=== PATIENT | male | born 1950 | race Caucasian/White ===

== ENCOUNTER 2019-09-08 18:30 | Inpatient (IN) ==
[2019-09-08] MEDS ORDERED: Naloxone 0.4 MG/ML INJ IVP PRN (21:48)
[2019-09-08 22:35] LABS: Mean Platelet Volume 8.8 fL (9.4-12.4)
[2019-09-08 22:37] LABS: Basophils % 0.1 %; Eosinophils # 0.3 K/mcL (0.0-0.6); Eosinophils % 2.7 %; Immature Granulocytes % 0.9 % (0-4); Lymphocytes # 2.2 K/mcL (0.6-4.6); Mean Corpuscular HGB Conc 30.6 g/dL (31.6-35.5); Mean Corpuscular Hemoglobin 27.8 pg (28.0-33.3); Mean Corpuscular Volume 90.9 fL (83.0-100.0); Monocytes # 0.5 K/mcL (0.0-1.3); Monocytes % 5.1 %; Neutrophils # 7.4 K/mcL (1.6-8.9); Platelet Count 375 K/mcL (140-400); Red Blood Count 1.87 M/mcL (4.19-5.50); Red Cell Distribution Width 16.4 % (11.5-14.5); Segmented Neutrophils % 70.2 %; White Blood Count 10.5 K/mcL (4.3-11.1)
[2019-09-08 22:44] LABS: INR 1.2; Prothrombin Time 13.2 Seconds (9.4-12.1)
[2019-09-08 22:47] LABS: Activated Partial Thrombo Time 34.1 Seconds (26.0-36.0)
[2019-09-08 22:55] LABS: Alanine Aminotransferase 7 Units/L (7-52); Albumin 2.4 g/dL (3.5-5.7); Albumin/Globulin Ratio 0.7 (1.1-2.2); Alkaline Phosphatase 92 Units/L (34-104); Aspartate Amino Transferase 12 Units/L (13-39); BUN/Creatinine Ratio 10 (6-26); Bilirubin,Total 0.5 mg/dL (0.3-1.0); Blood Urea Nitrogen 10 mg/dL (8-23); Calcium 7.8 mg/dL (8.6-10.3); Carbon Dioxide 27 mEq/L (23-29); Chloride 104 mEq/L (98-107); Globulin 3.4 g/dL (2.4-3.5); Glucose 101 mg/dL (70-105); Hemoglobin 5.2 g/dL (12.9-16.9); Osmolality,Calculated 281 (280-300); Potassium 4.3 mEq/L (3.5-5.1); Sodium 136 mEq/L (136-145); Total Protein 5.8 g/dL (6.4-8.9); eGFR For African Americans > 60 (> 60); eGFR For Non-African Americans > 60 (> 60)
[2019-09-08 22:56] LABS: Troponin I < 0.03 ng/mL (< 0.04)
[2019-09-08 23:12] LABS: Hypochromasia Present (Not Present); Microcytosis Present (Not Present); Platelet Estimate Normal (Normal)
[2019-09-08] MEDS ORDERED: PrednisoLONE Acetate 1% Opth 5 ML BOTTLE LEFT EYE SCH (23:15)
[2019-09-08] MEDS ORDERED: 0.9 % Sodium Chloride 250 ML ONE (23:36)
[2019-09-09] MEDS: levETIRAcetam 250 MG TABLET PO SCH ×3 (00:24→20:46)
[2019-09-09] MEDS ORDERED: 0.9 % Sodium Chloride 250 ML ONE (03:01)
[2019-09-09 04:18] LABS: Bilirubin,Urine Negative (Negative); Blood,Urine Large (Negative); Clarity,Urine Cloudy (Clear); Color,Urine Yellow (Yellow); Glucose,Urine (UA) Normal (Normal); Ketones,Urine Negative (Negative); Leukocyte Esterase,Urine Small (Negative); Nitrite,Urine Negative (Negative); PH,Urine 7.5 pH Units (5.0-8.0); Protein,Urine 100 mg/dL (Neg-Trace); Specific Gravity,Urine 1.014 (1.010-1.025); Urobilinogen,Urine Normal (Normal)
[2019-09-09 05:25] LABS: RBC,Urine TNTC per hpf (0-3)
[2019-09-09] MEDS ORDERED: cefTRIAXone 2,000 MG in Water for inj. (sterile) 20 ML IVP SCH (06:00)
[2019-09-09 08:02] LABS: Basophils # 0.1 K/mcL (0.0-0.2); Basophils % 0.7 %; Eosinophils # 0.2 K/mcL (0.0-0.6); Eosinophils % 2.6 %; Hematocrit 23.2 % (37.5-50.1); Immature Granulocytes % 0.5 % (0-4); Lymphocytes # 1.7 K/mcL (0.6-4.6); Lymphocytes % 18.8 %; Mean Corpuscular HGB Conc 32.3 g/dL (31.6-35.5); Mean Corpuscular Volume 89.6 fL (83.0-100.0); Mean Platelet Volume 8.6 fL (9.4-12.4); Monocytes # 0.7 K/mcL (0.0-1.3); Monocytes % 7.7 %; Neutrophils # 6.4 K/mcL (1.6-8.9); Platelet Count 319 K/mcL (140-400); Red Blood Count 2.59 M/mcL (4.19-5.50); Red Cell Distribution Width 15.8 % (11.5-14.5); Segmented Neutrophils % 69.7 %; White Blood Count 9.1 K/mcL (4.3-11.1)
[2019-09-09 08:12] LABS: Hemoglobin 7.5 g/dL (12.9-16.9)
[2019-09-09 08:17] LABS: Alanine Aminotransferase 8 Units/L (7-52); Albumin 2.3 g/dL (3.5-5.7); Albumin/Globulin Ratio 0.7 (1.1-2.2); Alkaline Phosphatase 87 Units/L (34-104); Aspartate Amino Transferase 12 Units/L (13-39); BUN/Creatinine Ratio 8 (6-26); Bilirubin,Total 0.4 mg/dL (0.3-1.0); Blood Urea Nitrogen 8 mg/dL (8-23); Calcium 7.8 mg/dL (8.6-10.3); Carbon Dioxide 27 mEq/L (23-29); Chloride 103 mEq/L (98-107); Globulin 3.3 g/dL (2.4-3.5); Glucose 91 mg/dL (70-105); Osmolality,Calculated 280 (280-300); Potassium 4.3 mEq/L (3.5-5.1); Sodium 136 mEq/L (136-145); Total Protein 5.6 g/dL (6.4-8.9); eGFR For African Americans > 60 (> 60); eGFR For Non-African Americans > 60 (> 60)
[2019-09-09] MEDS ORDERED: BESIFLOXACIN HCL LEFT EYE SCH (09:00)
[2019-09-09] MEDS: Fluticasone Propionate Nasal 50 MCG/SPRAY BOTTLE NS SCH (09:45)
[2019-09-09] MEDS: *HR* HYDROcodone/Acet 5/325 mg TABLET PO PRN ×2 (11:09→20:51)
[2019-09-09 13:11] LABS: Hematocrit 23.2 % (37.5-50.1); Hemoglobin 7.6 g/dL (12.9-16.9)
[2019-09-09] MEDS ORDERED: Ipratropium/Albuterol Neb 3 ML IH PRN (15:11)
[2019-09-09] MEDS: Gabapentin 400 MG CAPSULE PO SCH ×2 (15:18→20:46)
[2019-09-09] MEDS: cefTRIAXone 2,000 MG in 0.9 % Sodium Chloride Mini Bag 100 ML IVPB SCH (17:52)
[2019-09-09 19:05] LABS: Hematocrit 23.5 % (37.5-50.1); Hemoglobin 7.7 g/dL (12.9-16.9)
[2019-09-09] MEDS: Mirtazapine 15 MG TABLET PO SCH (20:46)
[2019-09-09] MEDS: traZODone 50 MG TABLET PO SCH (20:46)
[2019-09-10 04:03] LABS: Basophils # 0.1 K/mcL (0.0-0.2); Basophils % 0.5 %; Eosinophils # 0.4 K/mcL (0.0-0.6); Eosinophils % 3.2 %; Hematocrit 22.7 % (37.5-50.1); Hemoglobin 7.3 g/dL (12.9-16.9); Immature Granulocytes % 0.7 % (0-4); Lymphocytes % 18.1 %; Mean Corpuscular HGB Conc 32.2 g/dL (31.6-35.5); Mean Corpuscular Hemoglobin 28.5 pg (28.0-33.3); Mean Corpuscular Volume 88.7 fL (83.0-100.0); Mean Platelet Volume 8.7 fL (9.4-12.4); Neutrophils # 7.6 K/mcL (1.6-8.9); Platelet Count 355 K/mcL (140-400); Red Blood Count 2.56 M/mcL (4.19-5.50); Red Cell Distribution Width 16.1 % (11.5-14.5); Segmented Neutrophils % 68.5 %; White Blood Count 11.1 K/mcL (4.3-11.1)
[2019-09-10 04:19] LABS: BUN/Creatinine Ratio 12 (6-26); Blood Urea Nitrogen 15 mg/dL (8-23); Carbon Dioxide 24 mEq/L (23-29); Chloride 104 mEq/L (98-107); Glucose 92 mg/dL (70-105); Osmolality,Calculated 278 (280-300); Potassium 4.1 mEq/L (3.5-5.1); Sodium 134 mEq/L (136-145); eGFR For African Americans > 60 (> 60); eGFR For Non-African Americans 59 (> 60)
[2019-09-10] MEDS ORDERED: Folic Acid 1 MG TABLET PO SCH (09:00)
[2019-09-10] MEDS ORDERED: Cyanocobalamin (B-12) 1,000 MCG TABLET PO SCH (09:00)
[2019-09-10] MEDS ORDERED: Cholecalciferol (D-3) 1,000 UNIT (25MCG) TABLET PO SCH (09:00)
[2019-09-10] MEDS: Gabapentin 400 MG CAPSULE PO SCH ×3 (09:36→21:36)
[2019-09-10] MEDS: levETIRAcetam 250 MG TABLET PO SCH ×2 (09:36→21:37)
[2019-09-10] MEDS: Fluticasone Propionate Nasal 50 MCG/SPRAY BOTTLE NS SCH (09:37)
[2019-09-10] MEDS: cefTRIAXone 2,000 MG in 0.9 % Sodium Chloride Mini Bag 100 ML IVPB SCH (09:37)
[2019-09-10] MEDS: Mirtazapine 15 MG TABLET PO SCH (21:37)
[2019-09-10] MEDS: traZODone 50 MG TABLET PO SCH (21:37)
[2019-09-11 05:02] LABS: Basophils % 0.4 %; Eosinophils # 0.3 K/mcL (0.0-0.6); Eosinophils % 3.8 %; Hematocrit 21.8 % (37.5-50.1); Hemoglobin 6.8 g/dL (12.9-16.9); Immature Granulocytes % 0.7 % (0-4); Lymphocytes # 1.9 K/mcL (0.6-4.6); Lymphocytes % 22.7 %; Mean Corpuscular HGB Conc 31.2 g/dL (31.6-35.5); Mean Corpuscular Hemoglobin 28.7 pg (28.0-33.3); Mean Platelet Volume 8.8 fL (9.4-12.4); Monocytes # 0.9 K/mcL (0.0-1.3); Neutrophils # 5.2 K/mcL (1.6-8.9); Platelet Count 355 K/mcL (140-400); Red Blood Count 2.37 M/mcL (4.19-5.50); Red Cell Distribution Width 16.5 % (11.5-14.5); Segmented Neutrophils % 61.4 %; White Blood Count 8.4 K/mcL (4.3-11.1)
[2019-09-11 05:21] LABS: Calcium 7.8 mg/dL (8.6-10.3); Magnesium 2.1 mg/dL (1.6-2.6); Potassium 4.3 mEq/L (3.5-5.1)
[2019-09-11] MEDS ORDERED: Ondansetron 4 MG/2 ML VIAL ONE (07:20)
[2019-09-11] MEDS ORDERED: Lidocaine -MPF 2% 2 ML VIAL ONE (07:20)
[2019-09-11] MEDS ORDERED: *HR* FentaNYL (PF) 100 MCG/2 ML VIAL ONE ×3 (07:20→09:52)
[2019-09-11] MEDS ORDERED: *HR* Propofol 200 MG/20 ML VIAL IVP ONE (07:20)
[2019-09-11] MEDS ORDERED: Dexamethasone 4 MG/ML VIAL ONE (07:20)
[2019-09-11] MEDS ORDERED: Morphine Sulfate 2 MG/ML SYRINGE IVP PRN (07:23)
[2019-09-11] MEDS ORDERED: *HR* HYDROcodone/Acet 5/325 mg TABLET PO PRN (07:23)
[2019-09-11] MEDS ORDERED: Isovue-300 50ML VIAL ONE (07:27)
[2019-09-11] MEDS ORDERED: *HR* Succinylcholine 200 MG/10 ML VIAL IVP ONE (07:31)
[2019-09-11] MEDS: cefTRIAXone 2,000 MG in 0.9 % Sodium Chloride Mini Bag 100 ML IVPB SCH (08:15)
[2019-09-11] MEDS ORDERED: Lidocaine -MPF 4% 5 ML AMPUL ONE (08:20)
[2019-09-11] MEDS ORDERED: *HR* PHENYLEPHRINE 1,000 MCG/10 ML SYRINGE IVP ONE ×2 (08:20→08:46)
[2019-09-11] MEDS ORDERED: EPHEDrine 50 MG/ML VIAL ONE (08:49)
[2019-09-11] MEDS ORDERED: Naloxone 0.4 MG/ML INJ IVP PRN (11:24)
[2019-09-11] MEDS ORDERED: Ipratropium/Albuterol Neb 3 ML IH PRN (11:24)
[2019-09-11] MEDS: *HR* HYDROcodone/Acet 5/325 mg TABLET PO PRN (11:42)
[2019-09-11 12:56] LABS: Hematocrit 33.3 % (37.5-50.1); Hemoglobin 10.8 g/dL (12.9-16.9)
[2019-09-11] MEDS: levETIRAcetam 250 MG TABLET PO SCH (19:30)
[2019-09-11] MEDS: traZODone 50 MG TABLET PO SCH (19:31)
[2019-09-11] MEDS: Mirtazapine 15 MG TABLET PO SCH (19:31)
[2019-09-11] MEDS: Gabapentin 400 MG CAPSULE PO SCH (19:31)
[2019-09-12 07:13] LABS: Basophils # 0.1 K/mcL (0.0-0.2); Basophils % 0.6 %; Eosinophils # 0.3 K/mcL (0.0-0.6); Eosinophils % 3.9 %; Hematocrit 25.7 % (37.5-50.1); Immature Granulocytes % 0.9 % (0-4); Lymphocytes % 24.7 %; Mean Corpuscular HGB Conc 31.9 g/dL (31.6-35.5); Mean Corpuscular Hemoglobin 29.2 pg (28.0-33.3); Mean Corpuscular Volume 91.5 fL (83.0-100.0); Mean Platelet Volume 8.6 fL (9.4-12.4); Monocytes # 0.8 K/mcL (0.0-1.3); Monocytes % 9.4 %; Neutrophils # 4.8 K/mcL (1.6-8.9); Platelet Count 320 K/mcL (140-400); Red Blood Count 2.81 M/mcL (4.19-5.50); Red Cell Distribution Width 16.3 % (11.5-14.5); Segmented Neutrophils % 60.5 %; White Blood Count 7.9 K/mcL (4.3-11.1)
[2019-09-12 07:21] LABS: BUN/Creatinine Ratio 13 (6-26); Blood Urea Nitrogen 14 mg/dL (8-23); Calcium 7.8 mg/dL (8.6-10.3); Carbon Dioxide 30 mEq/L (23-29); Chloride 105 mEq/L (98-107); Glucose 89 mg/dL (70-105); Magnesium 1.9 mg/dL (1.6-2.6); Osmolality,Calculated 286 (280-300); Sodium 138 mEq/L (136-145); eGFR For African Americans > 60 (> 60); eGFR For Non-African Americans > 60 (> 60)
[2019-09-12 07:27] LABS: Hemoglobin 8.2 g/dL (12.9-16.9)
[2019-09-12] MEDS: *HR* HYDROcodone/Acet 5/325 mg TABLET PO PRN (08:02)
[2019-09-12] MEDS: Cyanocobalamin (B-12) 1,000 MCG TABLET PO SCH (08:03)
[2019-09-12] MEDS: levETIRAcetam 250 MG TABLET PO SCH ×2 (08:03→20:38)
[2019-09-12] MEDS: Folic Acid 1 MG TABLET PO SCH (08:04)
[2019-09-12] MEDS: Cholecalciferol (D-3) 1,000 UNIT (25MCG) TABLET PO SCH (08:05)
[2019-09-12] MEDS: cefTRIAXone 2,000 MG in 0.9 % Sodium Chloride Mini Bag 100 ML IVPB SCH (08:05)
[2019-09-12] MEDS: Gabapentin 400 MG CAPSULE PO SCH ×2 (08:05→20:38)
[2019-09-12] MEDS: Fluticasone Propionate Nasal 50 MCG/SPRAY BOTTLE NS SCH (08:07)
[2019-09-12] MEDS ORDERED: Ondansetron 4 MG/2 ML VIAL IVP PRN (18:13)
[2019-09-12] MEDS: traZODone 50 MG TABLET PO SCH (20:37)
[2019-09-12] MEDS: Mirtazapine 15 MG TABLET PO SCH (20:38)
[2019-09-13 04:39] LABS: Basophils # 0.1 K/mcL (0.0-0.2); Basophils % 0.7 %; Eosinophils # 0.5 K/mcL (0.0-0.6); Eosinophils % 5.4 %; Hematocrit 27.9 % (37.5-50.1); Hemoglobin 8.8 g/dL (12.9-16.9); Immature Granulocytes % 0.9 % (0-4); Lymphocytes # 1.9 K/mcL (0.6-4.6); Lymphocytes % 21.4 %; Mean Corpuscular HGB Conc 31.5 g/dL (31.6-35.5); Mean Corpuscular Hemoglobin 29.1 pg (28.0-33.3); Mean Corpuscular Volume 92.4 fL (83.0-100.0); Mean Platelet Volume 8.7 fL (9.4-12.4); Monocytes # 0.8 K/mcL (0.0-1.3); Monocytes % 9.5 %; Neutrophils # 5.4 K/mcL (1.6-8.9); Platelet Count 344 K/mcL (140-400); Red Blood Count 3.02 M/mcL (4.19-5.50); Red Cell Distribution Width 16.3 % (11.5-14.5); Segmented Neutrophils % 62.1 %; White Blood Count 8.7 K/mcL (4.3-11.1)
[2019-09-13 04:46] LABS: Prothrombin Time 11.6 Seconds (9.4-12.1)
[2019-09-13 04:58] LABS: BUN/Creatinine Ratio 15 (6-26); Blood Urea Nitrogen 18 mg/dL (8-23); Calcium 8.4 mg/dL (8.6-10.3); Carbon Dioxide 28 mEq/L (23-29); Chloride 105 mEq/L (98-107); Glucose 89 mg/dL (70-105); Magnesium 2.2 mg/dL (1.6-2.6); Osmolality,Calculated 285 (280-300); Potassium 4.4 mEq/L (3.5-5.1); Sodium 137 mEq/L (136-145); eGFR For African Americans > 60 (> 60); eGFR For Non-African Americans > 60 (> 60)
[2019-09-13] MEDS: Gabapentin 400 MG CAPSULE PO SCH ×2 (09:31→22:00)
[2019-09-13] MEDS: Cholecalciferol (D-3) 1,000 UNIT (25MCG) TABLET PO SCH (09:31)
[2019-09-13] MEDS: cefTRIAXone 2,000 MG in 0.9 % Sodium Chloride Mini Bag 100 ML IVPB SCH (09:32)
[2019-09-13] MEDS: Cyanocobalamin (B-12) 1,000 MCG TABLET PO SCH (09:32)
[2019-09-13] MEDS: Folic Acid 1 MG TABLET PO SCH (09:32)
[2019-09-13] MEDS: Fluticasone Propionate Nasal 50 MCG/SPRAY BOTTLE NS SCH (09:33)
[2019-09-13] MEDS: levETIRAcetam 250 MG TABLET PO SCH ×2 (09:34→22:01)
[2019-09-13] MEDS ORDERED: Cholecalciferol (D-3) 1,000 UNIT (25MCG) TABLET PO SCH (09:39)
[2019-09-13] MEDS ORDERED: 0.9 % Sodium Chloride 500 ML ONE ×2 (13:22→13:43)
[2019-09-13] MEDS ORDERED: *HR* Midazolam HCl 2 MG/2 ML VIAL IVP ONE (13:34)
[2019-09-13] MEDS ORDERED: Ampicillin/Sulbactam 1,500 MG in 0.9 % Sodium Chloride Mini Bag 100 ML IVPB ONE (13:34)
[2019-09-13] MEDS ORDERED: *HR* FentaNYL (PF) 100 MCG/2 ML VIAL IVP ONE (13:34)
[2019-09-13] MEDS: *HR* HYDROcodone/Acet 5/325 mg TABLET PO PRN ×2 (15:57→22:00)
[2019-09-13] MEDS: traZODone 50 MG TABLET PO SCH (22:01)
[2019-09-13] MEDS: Mirtazapine 15 MG TABLET PO SCH (22:01)
[2019-09-14 06:30] LABS: Basophils % 0.4 %; Eosinophils # 0.3 K/mcL (0.0-0.6); Hemoglobin 8.8 g/dL (12.9-16.9); Immature Granulocytes % 0.6 % (0-4); Lymphocytes # 1.1 K/mcL (0.6-4.6); Lymphocytes % 10.4 %; Mean Corpuscular HGB Conc 31.4 g/dL (31.6-35.5); Mean Corpuscular Volume 92.4 fL (83.0-100.0); Mean Platelet Volume 8.6 fL (9.4-12.4); Monocytes # 0.7 K/mcL (0.0-1.3); Monocytes % 6.2 %; Neutrophils # 8.7 K/mcL (1.6-8.9); Platelet Count 362 K/mcL (140-400); Red Blood Count 3.03 M/mcL (4.19-5.50); Segmented Neutrophils % 79.4 %; White Blood Count 10.9 K/mcL (4.3-11.1)
[2019-09-14 06:50] LABS: BUN/Creatinine Ratio 13 (6-26); Blood Urea Nitrogen 15 mg/dL (8-23); Calcium 8.2 mg/dL (8.6-10.3); Carbon Dioxide 28 mEq/L (23-29); Chloride 101 mEq/L (98-107); Glucose 88 mg/dL (70-105); Magnesium 2.1 mg/dL (1.6-2.6); Osmolality,Calculated 282 (280-300); Potassium 4.2 mEq/L (3.5-5.1); Sodium 136 mEq/L (136-145); eGFR For African Americans > 60 (> 60); eGFR For Non-African Americans > 60 (> 60)
[2019-09-14] MEDS: Gabapentin 400 MG CAPSULE PO SCH (08:58)
[2019-09-14] MEDS: Cyanocobalamin (B-12) 1,000 MCG TABLET PO SCH (08:58)
[2019-09-14] MEDS: levETIRAcetam 250 MG TABLET PO SCH (08:58)
[2019-09-14] MEDS: Folic Acid 1 MG TABLET PO SCH (08:58)
[2019-09-14] MEDS: Cholecalciferol (D-3) 1,000 UNIT (25MCG) TABLET PO SCH (08:58)
[2019-09-14] MEDS: cefTRIAXone 2,000 MG in 0.9 % Sodium Chloride Mini Bag 100 ML IVPB SCH (08:59)
[2019-09-14] MEDS: Fluticasone Propionate Nasal 50 MCG/SPRAY BOTTLE NS SCH (09:00)
[2019-09-14 12:06] VITALS: BP 106/67
[2019-09-14] MEDS ORDERED: FLU Vac QV 19-20 (6Month+)/PF 0.5 ML SYRINGE IM ONE (16:08)
[2019-09-14] MEDS: *HR* HYDROcodone/Acet 5/325 mg TABLET PO PRN (16:42)
== END 2019-09-14 17:26 | DRG 669 ==
LOC: SUATTDRO 20:31 → 2ANU 20:31
PROVIDERS: ADMIT Internal Medicine; ATTEND Pharmacist

== ENCOUNTER 2019-11-26 23:23 | Inpatient (IN) ==
[2019-11-26] MEDS ORDERED: *HR* Heparin 5,000 UNIT/ML VIAL IVP PRN (23:42)
[2019-11-26] MEDS ORDERED: *HR* Heparin 5,000 UNIT/ML VIAL IVP ONE (23:42)
[2019-11-27] MEDS: Heparin 25,000 UNIT/250 ML D5W 25,000 UNIT/250 ML IV.SOLN IVC SCH (00:10)
[2019-11-27 00:56] LABS: Alanine Aminotransferase 9 Units/L (7-52); Albumin 2.9 g/dL (3.5-5.7); Albumin/Globulin Ratio 0.6 (1.1-2.2); Alkaline Phosphatase 108 Units/L (34-104); Aspartate Amino Transferase 15 Units/L (13-39); BUN/Creatinine Ratio 17 (6-26); Bilirubin,Total 0.3 mg/dL (0.3-1.0); Blood Urea Nitrogen 16 mg/dL (8-23); Calcium 8.9 mg/dL (8.6-10.3); Carbon Dioxide 28 mEq/L (23-29); Chloride 98 mEq/L (98-107); Globulin 4.8 g/dL (2.4-3.5); Glucose 127 mg/dL (70-105); Magnesium 1.8 mg/dL (1.6-2.6); Osmolality,Calculated 281 (280-300); Phosphorous 2.7 mg/dL (2.7-4.5); Potassium 3.6 mEq/L (3.5-5.1); Sodium 134 mEq/L (136-145); Total Protein 7.7 g/dL (6.4-8.9); eGFR For African Americans > 60 (> 60); eGFR For Non-African Americans > 60 (> 60)
[2019-11-27 00:59] LABS: Hematocrit 30.8 % (37.5-50.1); Hemoglobin 9.6 g/dL (12.9-16.9); Mean Corpuscular HGB Conc 31.2 g/dL (31.6-35.5); Mean Corpuscular Hemoglobin 28.8 pg (28.0-33.3); Mean Corpuscular Volume 92.5 fL (83.0-100.0); Mean Platelet Volume 9.2 fL (9.4-12.4); Platelet Count 409 K/mcL (140-400); Red Blood Count 3.33 M/mcL (4.19-5.50); Red Cell Distribution Width 13.4 % (11.5-14.5); White Blood Count 21.4 K/mcL (4.3-11.1)
[2019-11-27 01:44] LABS: INR 1.4; Prothrombin Time 16.4 Seconds (9.4-12.1)
[2019-11-27 02:07] LABS: Bilirubin,Urine Negative (Negative); Blood,Urine Moderate (Negative); Clarity,Urine Turbid (Clear); Color,Urine Yellow (Yellow); Glucose,Urine (UA) Normal (Normal); Ketones,Urine Negative (Negative); Leukocyte Esterase,Urine Large (Negative); Nitrite,Urine Negative (Negative); PH,Urine 6.5 pH Units (5.0-8.0); Protein,Urine >=300 mg/dL (Neg-Trace); Specific Gravity,Urine > 1.030 (1.010-1.025); Urobilinogen,Urine Normal (Normal)
[2019-11-27 02:09] LABS: Bacteria,Urine Many per hpf (None-Few); Hyaline Casts,Urine None Seen per lpf (None-Few); Squamous Epithelial Cell,Urine Many per lpf (None-Few); WBC,Urine TNTC per hpf (0-3)
[2019-11-27] MEDS ORDERED: 0.9 % Sodium Chloride 1,000 ML IVC ONE (02:42)
[2019-11-27] MEDS ORDERED: Piperacillin/Tazobactam 3.375 GM in 0.9 % Sodium Chloride Mini Bag 100 ML IVPB ONE (02:42)
[2019-11-27 02:51] LABS: RBC,Urine 0-3 per hpf (0-3)
[2019-11-27] MEDS ORDERED: Naloxone 0.4 MG/ML INJ IVP PRN (04:49)
[2019-11-27] MEDS: *HR* Heparin 5,000 UNIT/ML VIAL IVP PRN ×2 (06:41→14:47)
[2019-11-27] MEDS: levETIRAcetam 250 MG TABLET PO SCH ×2 (10:14→22:21)
[2019-11-27] MEDS: Cyanocobalamin (B-12) 1,000 MCG TABLET PO SCH (10:15)
[2019-11-27] MEDS: Folic Acid 1 MG TABLET PO SCH (10:16)
[2019-11-27] MEDS: Acetaminophen 325 MG TABLET PO SCH ×4 (10:20→22:21)
[2019-11-27] MEDS: Fluticasone Propionate Nasal 50 MCG/SPRAY BOTTLE NS SCH (10:21)
[2019-11-27] MEDS: Budesonide/Formoterol 80/4.5 1 PUFF INH IH SCH ×3 (10:56→21:53)
[2019-11-27] MEDS: Piperacillin/Tazobactam 3.375 GM in 0.9 % Sodium Chloride Mini Bag 100 ML IVPB SCH ×2 (12:56→20:18)
[2019-11-27] MEDS: 0.9 % Sodium Chloride 1,000 ML IVC SCH (14:37)
[2019-11-27] MEDS: Ondansetron ODT 4 MG TAB.RAPDIS PO PRN (19:32)
[2019-11-27] MEDS: Mirtazapine 15 MG TABLET PO SCH (22:21)
[2019-11-27] MEDS: traZODone 50 MG TABLET PO SCH (23:28)
[2019-11-28] MEDS: Acetaminophen 325 MG TABLET PO SCH ×6 (02:05→23:27)
[2019-11-28] MEDS: 0.9 % Sodium Chloride 1,000 ML IVC SCH ×2 (02:06→16:23)
[2019-11-28] MEDS: Heparin 25,000 UNIT/250 ML D5W 25,000 UNIT/250 ML IV.SOLN IVC SCH ×2 (02:07→18:16)
[2019-11-28] MEDS: Piperacillin/Tazobactam 3.375 GM in 0.9 % Sodium Chloride Mini Bag 100 ML IVPB SCH ×3 (04:01→23:27)
[2019-11-28 04:59] LABS: Basophils # 0.1 K/mcL (0.0-0.2); Basophils % 0.5 %; Eosinophils # 0.2 K/mcL (0.0-0.6); Eosinophils % 1.3 %; Immature Granulocytes % 1.2 % (0-4); Immature Reticulocyte % 15.9 % (11.0-38.0); Lymphocytes # 1.2 K/mcL (0.6-4.6); Lymphocytes % 8.2 %; Mean Corpuscular HGB Conc 30.8 g/dL (31.6-35.5); Mean Corpuscular Hemoglobin 29.2 pg (28.0-33.3); Mean Corpuscular Volume 94.9 fL (83.0-100.0); Mean Platelet Volume 9.2 fL (9.4-12.4); Monocytes % 6.8 %; Neutrophils # 12.4 K/mcL (1.6-8.9); Platelet Count 322 K/mcL (140-400); Red Blood Count 2.53 M/mcL (4.19-5.50); Red Cell Distribution Width 13.4 % (11.5-14.5); Retculocyte # 0.04 M/mcL (0.05-0.10); Reticulocyte % 1.4 % (1.6-2.8); White Blood Count 15.1 K/mcL (4.3-11.1)
[2019-11-28 05:00] LABS: Hemoglobin 7.4 g/dL (12.9-16.9)
[2019-11-28 05:16] LABS: Alanine Aminotransferase 8 Units/L (7-52); Albumin 2.1 g/dL (3.5-5.7); Albumin/Globulin Ratio 0.6 (1.1-2.2); Alkaline Phosphatase 82 Units/L (34-104); Aspartate Amino Transferase 15 Units/L (13-39); BUN/Creatinine Ratio 14 (6-26); Bilirubin,Total 0.2 mg/dL (0.3-1.0); Blood Urea Nitrogen 13 mg/dL (8-23); Calcium 7.6 mg/dL (8.6-10.3); Carbon Dioxide 22 mEq/L (23-29); Chloride 107 mEq/L (98-107); Globulin 3.5 g/dL (2.4-3.5); Glucose 86 mg/dL (70-105); Magnesium 1.8 mg/dL (1.6-2.6); Osmolality,Calculated 285 (280-300); Phosphorous 3.1 mg/dL (2.7-4.5); Sodium 138 mEq/L (136-145); Total Protein 5.6 g/dL (6.4-8.9); eGFR For African Americans > 60 (> 60); eGFR For Non-African Americans > 60 (> 60)
[2019-11-28 05:38] LABS: Ferritin 625 ng/mL (20-250); Iron < 10 mcg/dL (65-175); Transferrin < 75 mg/dL (203-362)
[2019-11-28 05:45] LABS: Folate > 22.3 ng/mL (3.0-16.0); Vitamin B12 1243 pg/mL (250-1100)
[2019-11-28] MEDS: Budesonide/Formoterol 80/4.5 1 PUFF INH IH SCH ×2 (08:01→19:52)
[2019-11-28] MEDS: levETIRAcetam 250 MG TABLET PO SCH ×2 (09:38→23:26)
[2019-11-28] MEDS: Iron Sucrose Complex 400 MG in 0.9 % Sodium Chloride 250 ML IVPB SCH (09:38)
[2019-11-28] MEDS: Fluticasone Propionate Nasal 50 MCG/SPRAY BOTTLE NS SCH (09:38)
[2019-11-28] MEDS: Cyanocobalamin (B-12) 1,000 MCG TABLET PO SCH (09:39)
[2019-11-28] MEDS: Folic Acid 1 MG TABLET PO SCH (09:39)
[2019-11-28] MEDS ORDERED: 0.9 % Sodium Chloride 500 ML IVC ONE (10:28)
[2019-11-28] MEDS ORDERED: Piperacillin/Tazobactam 3.375 GM VIAL ONE (13:00)
[2019-11-28] MEDS: Potassium Chloride Elixir 20 MEQ/15 ML UDC PO ONE ×2 (16:10→19:36)
[2019-11-28] MEDS ORDERED: Haloperidol Lactate 5 MG/ML VIAL IVP ONE (16:19)
[2019-11-28] MEDS ORDERED: Haloperidol Lactate 5 MG/ML VIAL IVP PRN (16:27)
[2019-11-28] MEDS: traZODone 50 MG TABLET PO SCH (23:26)
[2019-11-28] MEDS: Mirtazapine 15 MG TABLET PO SCH (23:26)
[2019-11-29 02:15] LABS: Hematocrit 22.9 % (37.5-50.1); Hemoglobin 7.2 g/dL (12.9-16.9); Mean Corpuscular HGB Conc 31.4 g/dL (31.6-35.5); Mean Corpuscular Hemoglobin 28.3 pg (28.0-33.3); Mean Corpuscular Volume 90.2 fL (83.0-100.0); Mean Platelet Volume 9.1 fL (9.4-12.4); Platelet Count 419 K/mcL (140-400); Red Blood Count 2.54 M/mcL (4.19-5.50); Red Cell Distribution Width 13.5 % (11.5-14.5); White Blood Count 12.4 K/mcL (4.3-11.1)
[2019-11-29 02:35] LABS: BUN/Creatinine Ratio 13 (6-26); Blood Urea Nitrogen 11 mg/dL (8-23); Calcium 7.6 mg/dL (8.6-10.3); Carbon Dioxide 21 mEq/L (23-29); Chloride 112 mEq/L (98-107); Glucose 112 mg/dL (70-105); Magnesium 1.7 mg/dL (1.6-2.6); Osmolality,Calculated 290 (280-300); Potassium 3.1 mEq/L (3.5-5.1); Sodium 140 mEq/L (136-145); eGFR For African Americans > 60 (> 60); eGFR For Non-African Americans > 60 (> 60)
[2019-11-29] MEDS: Acetaminophen 325 MG TABLET PO SCH ×6 (05:34→21:23)
[2019-11-29] MEDS: 0.9 % Sodium Chloride 1,000 ML IVC SCH (05:42)
[2019-11-29] MEDS: Piperacillin/Tazobactam 3.375 GM in 0.9 % Sodium Chloride Mini Bag 100 ML IVPB SCH (05:43)
[2019-11-29 06:59] LABS: Hematocrit 21.6 % (37.5-50.1); Hemoglobin 6.6 g/dL (12.9-16.9)
[2019-11-29] MEDS: Budesonide/Formoterol 80/4.5 1 PUFF INH IH SCH ×2 (07:37→20:21)
[2019-11-29] MEDS ORDERED: Potassium Chloride Elixir 20 MEQ/15 ML UDC PO ONE (07:46)
[2019-11-29] MEDS ORDERED: 0.9 % Sodium Chloride 250 ML ONE (08:36)
[2019-11-29] MEDS: levETIRAcetam 250 MG TABLET PO SCH ×2 (09:25→21:23)
[2019-11-29] MEDS: Folic Acid 1 MG TABLET PO SCH (09:25)
[2019-11-29] MEDS: Cholecalciferol (D-3) 1,000 UNIT (25MCG) TABLET PO SCH (09:25)
[2019-11-29] MEDS: Cyanocobalamin (B-12) 1,000 MCG TABLET PO SCH (09:25)
[2019-11-29] MEDS: Fluticasone Propionate Nasal 50 MCG/SPRAY BOTTLE NS SCH (09:26)
[2019-11-29 10:25] LABS: Estimated Average Glucose 114 mg/dl
[2019-11-29] MEDS: Iron Sucrose Complex 400 MG in 0.9 % Sodium Chloride 250 ML IVPB SCH (11:33)
[2019-11-29] MEDS: Heparin 25,000 UNIT/250 ML D5W 25,000 UNIT/250 ML IV.SOLN IVC SCH (11:41)
[2019-11-29] MEDS ORDERED: Aminoglycoside Consult 1 EACH MC ONE (13:05)
[2019-11-29 13:13] LABS: Hematocrit 29.2 % (37.5-50.1)
[2019-11-29 13:16] LABS: Hemoglobin 9.1 g/dL (12.9-16.9)
[2019-11-29] MEDS ORDERED: Haloperidol Lactate 5 MG/ML VIAL IVP PRN (14:41)
[2019-11-29] MEDS: Meropenem 1,000 MG in 0.9 % Sodium Chloride Mini Bag 100 ML IVPB SCH (14:59)
[2019-11-29 19:51] LABS: Hematocrit 28.2 % (37.5-50.1); Hemoglobin 9.1 g/dL (12.9-16.9)
[2019-11-29] MEDS: traZODone 50 MG TABLET PO SCH (21:23)
[2019-11-29] MEDS: Mirtazapine 15 MG TABLET PO SCH (21:23)
[2019-11-30] MEDS: Acetaminophen 325 MG TABLET PO SCH ×6 (00:05→21:29)
[2019-11-30] MEDS: Meropenem 1,000 MG in 0.9 % Sodium Chloride Mini Bag 100 ML IVPB SCH ×2 (00:05→08:28)
[2019-11-30 01:22] LABS: Hematocrit 24.7 % (37.5-50.1); Mean Corpuscular HGB Conc 30.4 g/dL (31.6-35.5); Mean Corpuscular Hemoglobin 28.5 pg (28.0-33.3); Mean Corpuscular Volume 93.9 fL (83.0-100.0); Mean Platelet Volume 9.3 fL (9.4-12.4); Platelet Count 395 K/mcL (140-400); Red Blood Count 2.63 M/mcL (4.19-5.50); White Blood Count 14.5 K/mcL (4.3-11.1)
[2019-11-30 01:24] LABS: Hemoglobin 7.5 g/dL (12.9-16.9)
[2019-11-30 01:32] LABS: BUN/Creatinine Ratio 11 (6-26); Blood Urea Nitrogen 10 mg/dL (8-23); Calcium 7.9 mg/dL (8.6-10.3); Carbon Dioxide 21 mEq/L (23-29); Chloride 112 mEq/L (98-107); Glucose 96 mg/dL (70-105); Osmolality,Calculated 285 (280-300); Potassium 3.3 mEq/L (3.5-5.1); Sodium 138 mEq/L (136-145); eGFR For African Americans > 60 (> 60); eGFR For Non-African Americans > 60 (> 60)
[2019-11-30 06:49] LABS: Hematocrit 25.7 % (37.5-50.1); Hemoglobin 8.4 g/dL (12.9-16.9)
[2019-11-30] MEDS: Budesonide/Formoterol 80/4.5 1 PUFF INH IH SCH ×2 (07:49→22:05)
[2019-11-30] MEDS: levETIRAcetam 250 MG TABLET PO SCH ×2 (08:27→20:07)
[2019-11-30] MEDS: Cyanocobalamin (B-12) 1,000 MCG TABLET PO SCH (08:28)
[2019-11-30] MEDS: Heparin 25,000 UNIT/250 ML D5W 25,000 UNIT/250 ML IV.SOLN IVC SCH (08:28)
[2019-11-30] MEDS: Folic Acid 1 MG TABLET PO SCH (08:28)
[2019-11-30] MEDS: Cholecalciferol (D-3) 1,000 UNIT (25MCG) TABLET PO SCH (08:28)
[2019-11-30] MEDS: Fluticasone Propionate Nasal 50 MCG/SPRAY BOTTLE NS SCH (08:29)
[2019-11-30] MEDS: Iron Sucrose Complex 400 MG in 0.9 % Sodium Chloride 250 ML IVPB SCH (11:05)
[2019-11-30 11:52] LABS: Hematocrit 29.6 % (37.5-50.1); Hemoglobin 9.7 g/dL (12.9-16.9)
[2019-11-30] MEDS: Ertapenem 1,000 MG in 0.9 % Sodium Chloride Mini Bag 100 ML IVPB SCH (17:35)
[2019-11-30] MEDS: Mirtazapine 15 MG TABLET PO SCH (20:07)
[2019-11-30] MEDS: traZODone 50 MG TABLET PO SCH (20:08)
[2019-11-30 21:02] LABS: Hematocrit 29.3 % (37.5-50.1); Hemoglobin 9.2 g/dL (12.9-16.9)
[2019-12-01 01:11] LABS: Hematocrit 25.2 % (37.5-50.1); Hemoglobin 8.3 g/dL (12.9-16.9)
[2019-12-01] MEDS: Acetaminophen 325 MG TABLET PO SCH ×6 (02:08→20:36)
[2019-12-01] MEDS: Heparin 25,000 UNIT/250 ML D5W 25,000 UNIT/250 ML IV.SOLN IVC SCH (04:29)
[2019-12-01 04:57] LABS: Hematocrit 25.4 % (37.5-50.1); Hematocrit 25.7 % (37.5-50.1); Hemoglobin 7.9 g/dL (12.9-16.9); Hemoglobin 8.3 g/dL (12.9-16.9); Mean Corpuscular HGB Conc 32.3 g/dL (31.6-35.5); Mean Corpuscular Hemoglobin 28.9 pg (28.0-33.3); Mean Corpuscular Volume 89.5 fL (83.0-100.0); Mean Platelet Volume 8.8 fL (9.4-12.4); Platelet Count 447 K/mcL (140-400); Red Blood Count 2.87 M/mcL (4.19-5.50); White Blood Count 18.8 K/mcL (4.3-11.1)
[2019-12-01 05:18] LABS: BUN/Creatinine Ratio 11 (6-26); Blood Urea Nitrogen 9 mg/dL (8-23); Calcium 8.6 mg/dL (8.6-10.3); Carbon Dioxide 22 mEq/L (23-29); Chloride 110 mEq/L (98-107); Glucose 89 mg/dL (70-105); Magnesium 1.6 mg/dL (1.6-2.6); Osmolality,Calculated 286 (280-300); Potassium 3.6 mEq/L (3.5-5.1); Sodium 139 mEq/L (136-145); eGFR For African Americans > 60 (> 60); eGFR For Non-African Americans > 60 (> 60)
[2019-12-01] MEDS: Budesonide/Formoterol 80/4.5 1 PUFF INH IH SCH ×2 (07:50→22:10)
[2019-12-01] MEDS: Folic Acid 1 MG TABLET PO SCH (10:09)
[2019-12-01] MEDS: Cyanocobalamin (B-12) 1,000 MCG TABLET PO SCH (10:09)
[2019-12-01] MEDS: Cholecalciferol (D-3) 1,000 UNIT (25MCG) TABLET PO SCH (10:09)
[2019-12-01] MEDS: Ertapenem 1,000 MG in 0.9 % Sodium Chloride Mini Bag 100 ML IVPB SCH (10:10)
[2019-12-01] MEDS: Fluticasone Propionate Nasal 50 MCG/SPRAY BOTTLE NS SCH (10:12)
[2019-12-01] MEDS ORDERED: *HR* OxyCODONE Immed Rel 5 MG TABLET PO PRN (10:46)
[2019-12-01] MEDS: levETIRAcetam 250 MG TABLET PO SCH ×2 (12:17→20:17)
[2019-12-01] MEDS: Iron Sucrose Complex 400 MG in 0.9 % Sodium Chloride 250 ML IVPB SCH (12:17)
[2019-12-01] MEDS: *HR* OxyCODONE Immed Rel 5 MG TABLET PO PRN (12:17)
[2019-12-01 17:07] LABS: Hematocrit 27.1 % (37.5-50.1); Hemoglobin 8.5 g/dL (12.9-16.9)
[2019-12-01] MEDS: Mirtazapine 15 MG TABLET PO SCH (20:17)
[2019-12-01] MEDS: traZODone 50 MG TABLET PO SCH (20:17)
[2019-12-01 20:45] LABS: Hematocrit 26.1 % (37.5-50.1); Hemoglobin 8.4 g/dL (12.9-16.9)
[2019-12-02] MEDS: Acetaminophen 325 MG TABLET PO SCH ×6 (00:03→22:01)
[2019-12-02 01:04] LABS: Hematocrit 24.2 % (37.5-50.1); Hemoglobin 7.5 g/dL (12.9-16.9); Mean Corpuscular Hemoglobin 28.6 pg (28.0-33.3); Mean Corpuscular Volume 92.4 fL (83.0-100.0); Mean Platelet Volume 8.9 fL (9.4-12.4); Platelet Count 441 K/mcL (140-400); Red Blood Count 2.62 M/mcL (4.19-5.50); Red Cell Distribution Width 13.8 % (11.5-14.5); White Blood Count 20.1 K/mcL (4.3-11.1)
[2019-12-02 01:20] LABS: BUN/Creatinine Ratio 11 (6-26); Blood Urea Nitrogen 10 mg/dL (8-23); Calcium 8.9 mg/dL (8.6-10.3); Carbon Dioxide 26 mEq/L (23-29); Chloride 105 mEq/L (98-107); Glucose 141 mg/dL (70-105); Osmolality,Calculated 285 (280-300); Potassium 3.3 mEq/L (3.5-5.1); Sodium 137 mEq/L (136-145); eGFR For African Americans > 60 (> 60); eGFR For Non-African Americans > 60 (> 60)
[2019-12-02] MEDS: Heparin 25,000 UNIT/250 ML D5W 25,000 UNIT/250 ML IV.SOLN IVC SCH (01:54)
[2019-12-02] MEDS: Potassium Chloride Elixir 20 MEQ/15 ML UDC PO SCH ×2 (04:29→09:18)
[2019-12-02] MEDS: *HR* OxyCODONE Immed Rel 5 MG TABLET PO PRN (04:29)
[2019-12-02 06:05] LABS: Hemoglobin 8.2 g/dL (12.9-16.9)
[2019-12-02] MEDS: Budesonide/Formoterol 80/4.5 1 PUFF INH IH SCH ×2 (07:29→20:05)
[2019-12-02] MEDS: Ertapenem 1,000 MG in 0.9 % Sodium Chloride Mini Bag 100 ML IVPB SCH (09:18)
[2019-12-02] MEDS: Cholecalciferol (D-3) 1,000 UNIT (25MCG) TABLET PO SCH (09:19)
[2019-12-02] MEDS: levETIRAcetam 250 MG TABLET PO SCH ×3 (09:19→21:59)
[2019-12-02] MEDS: Folic Acid 1 MG TABLET PO SCH ×2 (09:19→09:34)
[2019-12-02] MEDS: Fluticasone Propionate Nasal 50 MCG/SPRAY BOTTLE NS SCH (09:21)
[2019-12-02] MEDS: Cyanocobalamin (B-12) 1,000 MCG TABLET PO SCH (09:21)
[2019-12-02 09:22] LABS: Hemoglobin 7.9 g/dL (12.9-16.9)
[2019-12-02] MEDS: Ondansetron ODT 4 MG TAB.RAPDIS PO PRN (09:30)
[2019-12-02] MEDS ORDERED: Haloperidol Oral Conc 10 MG/5 ML UDC PO PRN (11:03)
[2019-12-02] MEDS: traZODone 50 MG TABLET PO SCH (22:00)
[2019-12-02] MEDS: Mirtazapine 15 MG TABLET PO SCH (22:01)
[2019-12-03] MEDS: Acetaminophen 325 MG TABLET PO SCH ×3 (02:08→09:01)
[2019-12-03 07:26] VITALS: BP 102/56
[2019-12-03] MEDS: Budesonide/Formoterol 80/4.5 1 PUFF INH IH SCH (07:51)
[2019-12-03] MEDS: Cyanocobalamin (B-12) 1,000 MCG TABLET PO SCH (08:54)
[2019-12-03] MEDS: Folic Acid 1 MG TABLET PO SCH (08:54)
[2019-12-03] MEDS: Ertapenem 1,000 MG in 0.9 % Sodium Chloride Mini Bag 100 ML IVPB SCH (08:54)
[2019-12-03] MEDS: Cholecalciferol (D-3) 1,000 UNIT (25MCG) TABLET PO SCH (08:55)
[2019-12-03] MEDS: Fluticasone Propionate Nasal 50 MCG/SPRAY BOTTLE NS SCH (08:55)
[2019-12-03] MEDS: levETIRAcetam 250 MG TABLET PO SCH (09:01)
== END 2019-12-03 13:06 | disposition hospice, inpatient (51) | DRG 698 ==
LOC: EMEROOARM 23:23 → 2NENU 23:23 → SUATTDRO 11-27 03:07 → 2NENU 11-27 04:26 → SUATTDRO 11-28 14:21
PROVIDERS: ADMIT Family Medicine; ATTEND Internal Medicine